=== PATIENT | female | born 2000 | race Caucasian/White ===

== ENCOUNTER 2019-06-05 16:30 | Emergency (ER) | payer BC ==
[~2019-06-05] VITALS: Ht 162.6 cm; Wt 63.5 kg
--- NOTE | 2019-06-05 17:05 | NUR ---
Patient discharged to home in stable conditon. Written and verbal after care instructions given. Patient verbalizes understanding of instructions.pt walks in steady gait. no sign of distress. pt with mother.
== END 2019-06-05 17:07 | disposition home or self-care (01) ==
LOC: ER 16:30
DX: J45.909 Unspecified asthma, uncomplicated (principal); R11.10 Vomiting, unspecified
CPT/HCPCS: A4663